=== PATIENT | female | born 1985 | race Caucasian/White ===

== ENCOUNTER 2016-08-23 08:27 | Emergency (ER) | payer OTHER ==
[~2016-08-23] VITALS: Ht 162.6 cm; Wt 100.0 kg
[~2016-08-23 08:27] MED LIST: NAPR500 PO
[2016-08-23 08:29] VITALS: BP 147/73; PULSE 105; RESP 16; TEMP 98; O2SAT 95
[2016-08-23] MEDS ORDERED: SODIUM CHLOR 0.9% 1000 ML INJ 1,000 ML IV SCH (09:52)
--- NOTE | 2016-08-23 09:56 | PD ---
HPI Chief Complaint: Abdominal Pain Time Seen by Provider: 09:42 Travel History International Travel<30 days: No Contact w/Intl Traveler<30days: No Traveled to known affect area: No History of Present Illness HPI Is a 31-year-old female presents emergency Department with right lower abdominal pain and pelvic pain. Patient states his been going on and off for the past month but got quite severe about 2:00 in the morning last night. She was able to stay at work but after work at 7 in the morning she decided it was time to come in and be seen. She states this pain has not happened in the past. Denies any nausea vomiting diarrhea constipation. She denies fever. She denies any vaginal bleeding or vaginal discharge. Patient states the pain is coming and going, started over her right hip and then radiated inwards towards her suprapubic region. She describes the pain is cramping in nature. PFSH Past Medical History ADD: Yes ADHD: Yes Bipolar Disorder: Yes Anxiety: Yes Diminished Hearing: No Fibromyalgia: Yes Herniated Disk: Yes Musculoskeletal: Yes Psychiatric: Yes (OCD, PTSD) Tetanus Vaccination: > 5 Years ?: Not LMP: 3weeks ago : 0 Past Surgical History Oral Surgery: Yes (WISDOM TEETH 2005) Social History Alcohol Use: No Tobacco Use: Yes (/2 PPD) Substance Use: Yes (marijuana use) Allergies-Medications (Allergen,Severity, Reaction): Coded Allergies: Morphine (Verified Allergy, Severe, Itching, HEAT WAVE, 08/23/16) Ultram (Verified Allergy, Severe, Wheezing, VOMITING, 08/23/16) Reported Meds & Prescriptions Reported Meds & Active Scripts Active Flagyl (Metronidazole) 500 Mg Tab 500 Mg PO BID 7 Days Review of Systems Except as stated in HPI: all other systems reviewed are Neg Physical Exam Narrative GENERAL: Well-developed well-nourished, overweight but in no apparent distress. Antalgic gait. SKIN: Warm and dry. HEAD: Atraumatic. Normocephalic. EYES: Pupils equal and round. No scleral icterus. No injection or drainage. ENT: No nasal bleeding or discharge. Mucous membranes pink and moist. NECK: Trachea midline. No JVD. CARDIOVASCULAR: Regular rate and rhythm. No murmur appreciated. RESPIRATORY: No accessory muscle use. Clear to auscultation. Breath sounds equal bilaterally. GASTROINTESTINAL: Abdomen soft, non-tender, nondistended. Hepatic and splenic margins not palpable. Genitourinary: Exam performed with female nurse manager rfid at all times, patient has a piercing in her clitoral valdez, there is some mild left UA discharge, no cervical motion tenderness no cervical lesion, no bimanual tenderness. No genital lesion. MUSCULOSKELETAL: No obvious deformities. No clubbing. No cyanosis. No edema. NEUROLOGICAL: Awake and alert. No obvious cranial nerve deficits. Motor grossly within normal limits. Normal speech. PSYCHIATRIC: Appropriate mood and affect; insight and judgment normal. Data Data Last Documented VS Vital Signs Date Time Temp Pulse Resp B/P Pulse Ox O2 Delivery O2 Flow Rate FiO2 08/23/16 10:14 99 Room Air 08/23/16 08:29 98.0 105 16 147/73 Orders Urinalysis - C+S If Indicated (08/23/16 09:31) Ed Urine Pregnancytest Poc (08/23/16 09:31) Complete Blood Count With Diff (08/23/16 09:52) Comprehensive Metabolic Panel (08/23/16 09:52) Lipase (08/23/16 09:52) Prothrombin Time / Inr (Pt) (08/23/16 09:52) Act Partial Throm Time (Ptt) (08/23/16 09:52) Iv Access Insert/Monitor (08/23/16 09:52) Ecg Monitoring (08/23/16 09:52) Oximetry (08/23/16 09:52) Sodium Chlor 0.9% 1000 Ml Inj (Ns 1000 M (08/23/16 09:52) Sodium Chloride 0.9% Flush (Ns Flush) (08/23/16 10:00) Wet Prep Profile (08/23/16 09:52) Gc And Chlamydia Pcr (08/23/16 09:52) Us Pelvis Comp W Dop Transvag (08/23/16 11:08) Labs Laboratory Tests Test 08/23/16 08/23/16 08/23/16 10:00 11:00 12:30 White Blood Count 6.6 TH/MM3 Red Blood Count 5.11 MIL/MM3 Hemoglobin 14.8 GM/DL Hematocrit 42.8 % Mean Corpuscular Volume 83.7 FL Mean Corpuscular Hemoglobin 29.0 PG Mean Corpuscular Hemoglobin 34.7 % Concent Red Cell Distribution Width 13.1 % Platelet Count 235 TH/MM3 Mean Platelet Volume 7.9 FL Neutrophils (%) (Auto) 57.2 % Lymphocytes (%) (Auto) 31.9 % Monocytes (%) (Auto) 6.0 % Eosinophils (%) (Auto) 4.7 % Basophils (%) (Auto) 0.2 % Neutrophils # (Auto) 3.8 TH/MM3 Lymphocytes # (Auto) 2.1 TH/MM3 Monocytes # (Auto) 0.4 TH/MM3 Eosinophils # (Auto) 0.3 TH/MM3 Basophils # (Auto) 0.0 TH/MM3 CBC Comment DIFF FINAL Differential Comment Prothrombin Time 10.5 SEC Prothromb Time International 1.0 RATIO Ratio Activated Partial 21.6 SEC Thromboplast Time Sodium Level 142 MEQ/L Potassium Level 4.0 MEQ/L Chloride Level 107 MEQ/L Carbon Dioxide Level 27.5 MEQ/L Anion Gap 8 MEQ/L Blood Urea Nitrogen 10 MG/DL Creatinine 0.59 MG/DL Estimat Glomerular Filtration 119 ML/MIN Rate Random Glucose 121 MG/DL Calcium Level 8.7 MG/DL Total Bilirubin 0.3 MG/DL Aspartate Amino Transf 7 U/L (AST/SGOT) Alanine Aminotransferase 15 U/L (ALT/SGPT) Alkaline Phosphatase 84 U/L Total Protein 6.7 GM/DL Albumin 3.2 GM/DL Lipase 101 U/L Clue Cells (Wet Prep) PRESENT Vaginal Trichomonas (Wet Prep) NONE SEEN Vaginal Yeast (Wet Prep) NONE SEEN Chlamydia trachomatis DNA NOT DETECTED (PCR) Neisseria gonorrhoeae DNA NOT DETECTED (PCR) Urine Color LIGHT-YELLOW Urine Turbidity CLEAR Urine pH 7.0 Urine Specific [place] 1.010 Urine Protein NEG mg/dL Urine Glucose (UA) NEG mg/dL Urine Ketones NEG mg/dL Urine Occult Blood NEG Urine Nitrite NEG Urine Bilirubin NEG Urine Urobilinogen LESS THAN 2.0 MG/DL Urine Leukocyte Esterase NEG Urine RBC 2 /hpf Urine WBC 1 /hpf Urine Squamous Epithelial <1 /hpf Cells Microscopic Urinalysis Comment CULT NOT INDICATED MDM Medical Decision Making Medical Screen Exam Complete: Yes Emergency Medical Condition: Yes Differential Diagnosis Ovarian torsion, appendicitis highly unlikely, urinary tract infection, , STD, bacterial vaginosis, candidal vaginosis, others Narrative Course Patient was roomed in emergency department, she was offered pain medicine several time in the emergency department and continued to decline. She does work at [employer] and would like to avoid pain medicine. She appears quite comfortable and in no obvious distress. Patient's pelvic exam does show evidence of bacterial vaginosis though her antalgic gait suggest another cause of her abdominal pain. This sound was performed and shows no evidence of torsion, there is some small cysts. CBC CMP test and UA all within normal limits. Return to the room to discuss with the patient who is feeling better and states her pain is been gradually resolving since 0200. Results were discussed with her and recommended starting at course of Flagyl and following up with her primary care physician. She is agreeable this action at this time. Discussed with her signs symptoms that should prompt emergent return. We did discuss CAT scan but at this time my opinion is that the risks of radiation exposure outweigh the diagnostic benefits. She agrees to defer at this time. Diagnosis Primary Impression: Pelvic pain Additional Impression: Bacterial vaginosis Med/Other Pt SpecificInfo: Prescription(s) given Scripts Metronidazole (Flagyl)500 Mg Gln074 Mg PO BID 7 Days Ref 0 Prov:Joon Subramanian MD 08/23/16 Disposition: 01 DISCHARGE HOME Condition: Stable Joon Subramanian MD Aug 23, 2016 09:56
[2016-08-23] MEDS ORDERED: SODIUM CHLORIDE 0.9% FLUSH 5 ML FLUSH IVF PRN (10:00)
[2016-08-23 10:14] VITALS: O2SAT 99
[2016-08-23 10:18] LABS: AUTOMATED NEUTROPHIL # 3.8 TH/MM3 (1.8-7.7); BASOPHIL % 0.2 % (0.0-2.0); EOSINOPHIL # 0.3 TH/MM3 (0-0.4); EOSINOPHIL % 4.7 % (0.0-4.0); HEMATOCRIT 42.8 % (35.0-46.0); HEMO FLAGS DIFF FINAL; LYMPH % 31.9 % (9.0-44.0); LYMPHOCYTE # 2.1 TH/MM3 (1.0-4.8); MEAN CELL VOLUME 83.7 FL (80.0-100.0); MEAN CORPUSCULAR HGB CONC 34.7 % (32.0-36.0); NEUT % 57.2 % (16.0-70.0); PLATELET COUNT 235 TH/MM3 (150-450); RED BLOOD COUNT 5.11 MIL/MM3 (4.00-5.30); RED CELL DISTRIBUTION WIDTH 13.1 % (11.6-17.2); WHITE BLOOD COUNT 6.6 TH/MM3 (4.0-11.0)
[2016-08-23 10:27] LABS: APTT (PATIENT) 21.6 SEC (24.3-30.1); PROTHROMBIN TIME - PATIENT 10.5 SEC (9.8-11.6)
[2016-08-23 10:34] LABS: ALT (GPT) 15 U/L (10-53); ANION GAP 8 MEQ/L (5-15); AST (GOT) 7 U/L (15-37); BICARBONATE 27.5 MEQ/L (21.0-32.0); BLOOD UREA NITROGEN 10 MG/DL (7-18); CHLORIDE 107 MEQ/L (98-107); GLOMERULAR FILTRATION RATE 119 ML/MIN (>89); SODIUM (NA) 142 MEQ/L (136-145)
[2016-08-23 10:36] LABS: ALKALINE PHOSPHATASE 84 U/L (45-117); TOTAL BILIRUBIN ADULT 0.3 MG/DL (0.2-1.0)
--- NOTE | 2016-08-23 12:52 | RADRPT ---
EXAM DATE/TIME: 08/23/2016 12:06 [facility] COMPARISON: No previous studies available for comparison. INDICATIONS : Pelvic pain. MEDICAL HISTORY : Pelvic pain. Herniated disks. Bipolar disorder. SURGICAL HISTORY : [place] teeth surgery. ENCOUNTER: Initial ACUITY: 4-6 days PAIN SCORE: 5/10 LOCATION: Right pelvis MEASUREMENTS: UTERUS: 7.1 x 3.2 x 4.4 cm ENDOMETRIAL STRIPE: 13 mm RIGHT OVARY: 2.0 x 2.2 x 1.9 cm LEFT OVARY: 2.8 x 1.5 x 1.2 cm FINDINGS: UTERUS: The myometrium has homogeneous echotexture without mass. RIGHT OVARY: 13 mm cyst. LEFT OVARY: Subcentimeter follicles. MISCELLANEOUS: No free fluid. CONCLUSION: Within normal limits for a patient this age. Jonh Cervantes MD on August 23, 2016 at 12:49 Board Certified Radiologist. This report was verified electronically.
[2016-08-23 12:56] LABS: BLOOD, URINE NEG (NEG); GLUCOSE,URINE NEG (NEG); KETONE, URINE NEG (NEG); NITRITE,URINE NEG (NEG); SQUAMOUS EPITHELIAL CELL URINE <1 /hpf (0-5); URINE COLOR LIGHT-YELLOW (YELLW/STRAW)
[2016-08-23 12:58] LABS: COMMENT (UR) CULT NOT INDICATED; CULTURE IF INDICATED CULT NOT INDICATED
[2016-08-23] MEDS ORDERED: METR-1 PO (13:24)
[2016-08-23 13:26] LABS: CHLAMYDIA PCR NOT DETECTED (NOT DETECT); NEISSERIA PCR NOT DETECTED (NOT DETECT)
== END 2016-08-23 13:40 | disposition home or self-care (01) ==
LOC: NEPB 08:27
DX: R10.2 Pelvic and perineal pain (principal); N76.0 Acute vaginitis; M79.7 Fibromyalgia; F17.210 Nicotine dependence, cigarettes, uncomplicated
CPT/HCPCS: 76830; 76856; 80053; 81001; 83690; 84703; 85025; 85610; 85730; 87210; 87491; 87591; 93975; 99284; J7030